=== PATIENT | male | born 1945 | race Caucasian/White ===

== ENCOUNTER 2017-10-19 18:40 | Emergency (ER) | payer OTHER ==
[~2017-10-19] VITALS: Ht 177.8 cm; Wt 111.6 kg
--- NOTE | 2017-10-19 19:31 | Diagnostic Imaging Report ---
EXAMINATION: CHEST SINGLE (PORTABLE) INDICATION: Dizzy. Nausea. COMPARISON: None FINDINGS: AP view TUBES and LINES: None. LUNGS: Lungs are well inflated. Lungs are clear. There is no evidence of pneumonia or pulmonary edema. PLEURA: No pleural effusion or pneumothorax. HEART AND MEDIASTINUM: The cardiomediastinal silhouette is unremarkable. BONES AND SOFT TISSUES: No acute osseous lesion. Soft tissues are unremarkable. UPPER ABDOMEN: No free air under the diaphragm. IMPRESSION: No acute thoracic abnormality. Signed by: Dr. Campbell Mccallum M.D. on 10/19/2017 7:27 PM
[2017-10-19 19:50] LABS: BASOPHILS % 0.3 % (0.0-1.0); EOSINOPHILS # (AUTO) 0.1 (0.0-0.4); EOSINOPHILS % 1.8 % (0.0-6.0); HEMATOCRIT 44.4 % (38.2-49.6); HEMOGLOBIN 14.4 g/dL (14.0-18.0); LYMPHOCYTES # (AUTO) 0.8 (1.0-3.2); LYMPHOCYTES % 9.8 % (18.0-39.1); MEAN CORPUSCULAR HEMOGLOBIN 27.9 pg (28-32); MEAN CORPUSCULAR HGB CONC 32.4 g/dL (31-35); MONOCYTES # (AUTO) 0.6 (0.2-0.8); MONOCYTES % 7.1 % (4.4-11.3); NEUTROPHILS # (AUTO) 6.3 (2.1-6.9); NEUTROPHILS % 80.6 % (38.7-80.0); PLATELET COUNT 128 x10e3/uL (140-360); RED BLOOD COUNT 5.16 x10e6/uL (4.3-5.7); RED CELL DISTRIBUTION WIDTH 13.2 % (11.7-14.4)
[2017-10-19 19:58] LABS: INR 1.11; PROTHROMBIN TIME 13.5 seconds (11.9-14.5)
[2017-10-19 19:59] LABS: PARTIAL THROMBOPLASTIN TIME 33.1 seconds (23.8-35.5)
[2017-10-19 20:06] LABS: ALANINE AMINOTRANSFERASE 25 IU/L (0-55); ALBUMIN 4.5 g/dL (3.5-5.0); ALBUMIN/GLOBULIN RATIO 1.4 (0.8-2.0); ALKALINE PHOSPHATASE 66 IU/L (40-150); ANION GAP 13.9 mmol/L (8-16); BLOOD UREA NITROGEN 17 mg/dL (7-26); BUN/CREATININE RATIO 17 (6-25); CARBON DIOXIDE 27 mmol/L (22-29); CHLORIDE 104 mmol/L (98-107); CREATINE KINASE 168 IU/L (30-200); CREATININE, SERUM 1.02 mg/dL (0.72-1.25); EST GLOMERULAR FILTRATION RATE > 60 ML/MIN (60-); GLUCOSE 91 mg/dL (74-118); MAGNESIUM 2.1 MG/DL (1.3-2.1); POTASSIUM 4.9 mmol/L (3.5-5.1); SODIUM 140 mmol/L (136-145)
[2017-10-19 20:26] LABS: THYROID STIMULATING HORMONE 2.037 uIU/mL (0.350-4.940)
--- NOTE | 2017-10-19 20:36 | Diagnostic Imaging Report ---
EXAMINATION: Head CT without contrast. HISTORY:Dizziness and nausea. COMPARISON:None. TECHNIQUE: Multidetector axial images were obtained from the foramen magnum to the vertex without contrast. The images were reconstructed using brain and bone algorithms. Thin section brain images were reformatted into coronal and sagittal planes. Intravenous contrast: None IMAGE QUALITY: Acceptable. FINDINGS: Skull/scalp: No lytic or blastic. lesions. No surgical changes. Parenchyma: Focal hypodensity in left caudate head represents an age indeterminate lacunar infarct. Nonspecific few, scattered supratentorial white matter patchy hypodensity are likely related to small vessel ischemic changes. Arteries: No density suggestive of thrombosis. Dural sinuses: No abnormal density suggestive of thrombosis. Ventricles: No hydrocephalus or displacement. Extra-axial spaces: No abnormal density. Brain volume: Normal for age. Craniocervical junction: No mass, Chiari malformation, or basilar invagination. Sella: No mass. Paranasal/mastoid sinuses: Imaged portions unremarkable. IMPRESSION: 1. 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 2. Mild supratentorial white matter microvascular ischemic changes. 3. Mild generalized age-related cerebral volume loss. Signed by: Dr. Alicia Buckley M.D. on 10/19/2017 8:33 PM
[2017-10-19 23:07] VITALS: BP 148/99
== END 2017-10-19 23:08 | disposition home or self-care (01) ==
LOC: ER 18:40
DX: R42 Dizziness and giddiness (principal); I10 Essential (primary) hypertension; I51.9 Heart disease, unspecified
CPT/HCPCS: 36415; 70450; 71045; 80053; 82550; 82553; 83735; 83880; 84443; 84484; 85025; 85610; 85730; 93005; 99284

== ENCOUNTER → 2023-05-17 | Outpatient (REF) | payer MEDICARE | LOC: CARD 13:59 | PROVIDERS: ATTEND Internal Medicine | DX: I65.23 Occlusion and stenosis of bilateral carotid arteries (principal); Z68.36 Body mass index [BMI] 36.0-36.9, adult; E78.5 Hyperlipidemia, unspecified; I10 Essential (primary) hypertension; I25.10 Atherosclerotic heart disease of native coronary artery without angina pectoris; E78.2 Mixed hyperlipidemia | CPT/HCPCS: 93880 ==